=== PATIENT | male | born 1990 | race Two or more races ===

== ENCOUNTER 2017-10-05 15:02 | Emergency (ER) | payer MEDICAID, OTHER ==
[~2017-10-05] VITALS: Ht 165.1 cm; Wt 72.6 kg
[~2017-10-05 15:02] MED LIST: NO HOME MEDICATIONS
[2017-10-05 15:07] VITALS: BP 126/70
== END 2017-10-05 15:21 | disposition home or self-care (01) ==
LOC: ER 15:13
DX: I88.9 Nonspecific lymphadenitis, unspecified (principal); J02.0 Streptococcal pharyngitis; Z90.5 Acquired absence of kidney
CPT/HCPCS: A4606; Z7610

== ENCOUNTER 2018-12-17 04:51 | Emergency (ER) | payer MEDICAID ==
[~2018-12-17] VITALS: Ht 165.1 cm; Wt 77.1 kg
[2018-12-17 04:56] VITALS: BP 136/90
== END 2018-12-17 06:04 | disposition home or self-care (01) ==
LOC: ER 04:57
DX: J02.8 Acute pharyngitis due to other specified organisms (principal); B97.89 Other viral agents as the cause of diseases classified elsewhere; Z98.890 Other specified postprocedural states
CPT/HCPCS: 87070; 87880; 99283; A4606; 86403-TC

== ENCOUNTER 2019-04-01 17:58 | Emergency (ER) | payer MEDICAID ==
[~2019-04-01] VITALS: Ht 167.6 cm; Wt 72.6 kg
[2019-04-01 18:23] VITALS: BP 153/93
--- NOTE | 2019-04-01 18:29 | NUR ---
URINE COLLECTED AND SENT TO LAB
[2019-04-01] MEDS ORDERED: AZITHROMYCIN 250 MG TABLET PO ONE (18:30)
[2019-04-01] MEDS ORDERED: CEFTRIAXONE 500 MG VIAL IM ONE (18:30)
[2019-04-01] MEDS ORDERED: AZITHROMYCIN 250 MG TABLET ONE (18:58)
[2019-04-01] MEDS ORDERED: CEFTRIAXONE 500 MG VIAL ONE (18:58)
[2019-04-01] MEDS ORDERED: LIDOCAINE /MPF 1% VIAL 5 ML VIAL ONE (19:00)
[2019-04-01 19:01] LABS: APPEARANCE,URINE Clear (CLEAR); BILIRUBIN,URINE Negative (NEGATIVE); BLOOD, URINE Negative Ery/uL (NEGATIVE); COLOR,URINE Yellow (YELLOW); KETONES,URINE Negative (NEGATIVE); LEUKOCYTE ESTERASE ,URINE Trace (NEGATIVE); NITRITE, URINE Negative (NEGATIVE); PROTEIN,URINE Negative (NEGATIVE); UGLUCOSE Negative (NEGATIVE); UROBILINOGEN,URINE 0.2 EU/dL (0.2)
[2019-04-01 19:15] LABS: RBC,URINE 0-2 /HPF (0-2)
[2019-04-01 19:16] LABS: BACTERIA,URINE Few /HPF (None Seen); SQUAMOUS EPITHELIAL CELL,UR Few /HPF (None Seen)
== END 2019-04-01 19:15 | disposition home or self-care (01) ==
LOC: ER 17:58
DX: N34.2 Other urethritis (principal); R30.0 Dysuria; R36.9 Urethral discharge, unspecified; Z90.5 Acquired absence of kidney
CPT/HCPCS: 81001; 87086; 87491; 87591; 96372; 99283; J0696; J3490; 81000-TC

== ENCOUNTER 2019-10-29 17:46 | Emergency (ER) | payer MEDICAID ==
[~2019-10-29] VITALS: Ht 167.6 cm; Wt 74.8 kg
[2019-10-29 18:11] VITALS: BP 140/84
== END 2019-10-29 19:31 | disposition home or self-care (01) ==
LOC: ER 17:49
DX: L30.9 Dermatitis, unspecified (principal); Z90.5 Acquired absence of kidney

== ENCOUNTER 2020-09-08 13:56 | Emergency (ER) | payer MEDICAID ==
[~2020-09-08] VITALS: Ht 170.2 cm; Wt 72.6 kg
--- NOTE | 2020-09-08 15:45 | NUR ---
DR. DYKES AT BS FOR EVAL.
[2020-09-08] MEDS ORDERED: ONDANSETRON HCL/PF 4 MG/2 ML VIAL ONE (15:51)
[2020-09-08] MEDS ORDERED: KETOROLAC TROMETHAMINE INJ 30 MG/ML VIAL ONE (15:51)
[2020-09-08] MEDS: ONDANSETRON HCL/PF 4 MG/2 ML VIAL IVP ONE (16:03)
[2020-09-08] MEDS: IV NS 0.9% 1,000 ML BAG IV ONE (16:03)
[2020-09-08] MEDS: KETOROLAC TROMETHAMINE INJ 30 MG/ML VIAL IV ONE (16:05)
--- NOTE | 2020-09-08 16:05 | NUR ---
PT C/O RT FLANK PAIN X 1 WK. AAOX4, RR EVEN & UNLABORED. DENIES CP, SOB, DIZZINESS, N/V AT THIS TIME. MEDICATED ORDERED, PT DENIS WELL. WILL CONT TO MONITOR.
[2020-09-08 16:20] LABS: BASOPHILS % (AUTO) 0.5 % (0.0-2.0); EOSINOPHILS % (AUTO) 0.8 % (0.0-6.0); HEMATOCRIT 45 % (39-51); HEMOGLOBIN 14.6 g/dL (13.5-17.5); LYMPHOCYTES # (AUTO) 1.6 /CMM (0.8-4.8); LYMPHOCYTES % (AUTO) 38.8 % (20.0-44.0); MEAN CORPUSCULAR HGB CONC 32 g/dl (31.0-36.0); MEAN CORPUSCULAR VOLUME 84 fL (80-96); MONOCYTES # (AUTO) 0.6 /CMM (0.1-1.30); NEUTROPHILS # (AUTO) 1.8 /CMM (1.8-8.9); NEUTROPHILS % (AUTO) 44.9 % (43.0-81.0); PLATELET COUNT (AUTO) 180 /CMM (150-450); RED BLOOD CELL COUNT(AUTO) 5.36 MIL/uL (4.5-6.0)
[2020-09-08 16:33] LABS: BILIRUBIN,DIRECT 0.2 mg/dL (0.0-0.2); BILIRUBIN,TOTAL 0.6 mg/dL (0.2-1.0); BILIRUBIN,URINE NEGATIVE (NEGATIVE); BLOOD, URINE SMALL Ery/uL (NEGATIVE); CALCIUM, SERUM 9.1 mg/dL (8.5-10.1); COLOR,URINE YELLOW (YELLOW); LEUKOCYTE ESTERASE ,URINE SMALL (NEGATIVE); NITRITE, URINE NEGATIVE (NEGATIVE); PH,URINE 6.5 (5.0-8.0); PROTEIN,URINE 100 mg/dl (NEGATIVE); TOTAL PROTEIN, SERUM 7.6 g/dL (6.4-8.2); UGLUCOSE NEGATIVE (NEGATIVE)
[2020-09-08 16:46] LABS: BACTERIA,URINE 2+ /HPF (None Seen); MUCUS,URINE Few /LPF (None Seen); SQUAMOUS EPITHELIAL CELL,UR 0-2 /HPF (None Seen)
[2020-09-08 17:05] LABS: BAND % (MANUAL) 2 % (0.0-5.0); LYMPHOCYTES % (MANUAL) 28 % (16-48); MONOCYTES % (MANUAL) 10 % (0-11.0); NEUTROPHILS % (MANUAL) 55 (42-76); REACTIVE LYMPHOCYTES 5 % (0-0)
[2020-09-08] MEDS ORDERED: CEFTRIAXONE 1GM BAG (ER ONLY) 50 ML IV ONE (17:32)
[2020-09-08] MEDS: CEFTRIAXONE 1 G in IV D5W 50 ML IV ONE (17:43)
[2020-09-08 18:26] VITALS: BP 131/89
--- NOTE | 2020-09-08 18:26 | NUR ---
Patient discharged to home in stable condition. Written and verbal after care instructions given. Patient verbalizes understanding of instruction. IV removed. Catheter intact and site benign. Pressure and 4x4 applied to site. No bleeding noted.
== END 2020-09-08 18:27 | disposition home or self-care (01) ==
LOC: ER 14:14
DX: N13.2 Hydronephrosis with renal and ureteral calculous obstruction (principal); Z90.5 Acquired absence of kidney
CPT/HCPCS: 36415; 74176; 80048; 80076; 81001; 83690; 85007; 85025; 96361; 96365; 96375; 99284; J0696 ×2; J1885; J2405; J7030; J7060; 87086-TC

== ENCOUNTER 2021-02-07 23:00 | Emergency (ER) | payer MEDICAID ==
[~2021-02-07] VITALS: Ht 170.2 cm; Wt 74.8 kg
[2021-02-07] MEDS ORDERED: HYDROCODONE/APAP 10/325MG TABLET ONE (23:24)
[2021-02-07] MEDS ORDERED: ONDANSETRON 4 MG TAB.RAPDIS ONE (23:25)
--- NOTE | 2021-02-07 23:27 | NUR ---
X RAY AT BED SIDE
[2021-02-07] MEDS ORDERED: HYDROCODONE/APAP 10/325MG TABLET PO ONE (23:30)
[2021-02-07] MEDS ORDERED: ONDANSETRON 4 MG TAB.RAPDIS SL ONE (23:30)
[2021-02-07] MEDS ORDERED: HYDR-4209 PO (23:43)
--- NOTE | 2021-02-07 23:51 | NUR ---
Patient discharged to home in stable condition. Rx, written and verbal after care instructions given. Patient verbalizes understanding of instruction.
[2021-02-07 23:53] VITALS: BP 126/81
== END 2021-02-07 23:54 | disposition home or self-care (01) ==
LOC: ER 23:00
DX: S93.491A Sprain of other ligament of right ankle, initial encounter (principal); Z90.5 Acquired absence of kidney; Z60.2 Problems related to living alone; Z79.899 Other long term (current) drug therapy; X50.1XXA Overexertion from prolonged static or awkward postures, initial encounter; Y93.89 Activity, other specified; Y92.89 Other specified places as the place of occurrence of the external cause; Y99.8 Other external cause status
CPT/HCPCS: 73610; 99283; Q0162